=== PATIENT | female | born 2005 | race Two or more races ===

== ENCOUNTER → 2025-06-16 | Outpatient (CLI) | payer MEDICAID, SELFPAY ==
--- NOTE | 2025-06-16 13:35 | XR_ITS ---
EXAMINATION: PA chest single view TECHNIQUE: Upright PA chest single view Date and time: June 16, 2025, 1438 hours INDICATIONS: Positive TB skin test this month. FINDINGS: Normal heart size Lungs are clear. Intact osseous structures IMPRESSION: No active disease No radiographic findings of active tuberculosis
== END | disposition home or self-care (01) ==
LOC: CDIM 13:23
PROVIDERS: PCP Family Medicine; Referring Provider Physician Assistant Medical; Visit Provider Physician Assistant Medical
DX: R76.12 Nonspecific reaction to cell mediated immunity measurement of gamma interferon antigen response without active tuberculosis (principal); Z34.82 Encounter for supervision of other normal pregnancy, second trimester
CPT/HCPCS: 71045